=== PATIENT | female | born 1950 | race Caucasian/White ===

== ENCOUNTER 2018-02-10 13:16 | Outpatient (CLI) | payer MEDICARE, OTHER ==
[~2018-02-10] VITALS: Ht 157.5 cm; Wt 72.6 kg
[2018-02-10] MEDS ORDERED: DEXAMETHASONE 10 MG/ML (DECADRON) 1 ML VIAL ONE (13:24)
[2018-02-10 13:33] VITALS: BP 102/99
[2018-02-10 13:52] VITALS: BP 145/71
== END 2018-02-10 13:55 | disposition home or self-care (01) ==
LOC: CARD 13:16
PROVIDERS: ATTEND Pain Medicine Interventional Pain Medicine
DX: M54.12 Radiculopathy, cervical region (principal); M06.9 Rheumatoid arthritis, unspecified; K21.9 Gastro-esophageal reflux disease without esophagitis; F32.9 Major depressive disorder, single episode, unspecified; Z79.899 Other long term (current) drug therapy
CPT/HCPCS: 62321

== ENCOUNTER 2023-09-11 09:10 | Emergency (ER) | payer MEDICARE, OTHER ==
[~2023-09-11] VITALS: Ht 157.5 cm; Wt 75.7 kg
[2023-09-11 09:16] VITALS: BP 181/84
--- NOTE | 2023-09-11 09:29 | ED Lower Extremity ---
General Chief Complaint: Lower Extremity Stated Complaint: RT ANKLE PAIN History of Present Illness Date Seen by Provider: Sep 11, 2023 Time Seen by Provider: 09:20 Initial Comments 73 yr F is here with c/o twisting her right ankle while she was walking her dog. Pt put ice on it right away but it did not help the pain or swelling much. Allergies and Home Medications Allergies Coded Allergies: latex (Verified Allergy, Unknown, 02/10/18) Patient Home Medication List Home Medication List Reviewed: Yes Review of Systems Constitutional: no symptoms reported Musculoskeletal: joint pain, joint swelling Past Vmuwhvx-Jheajv-Acaijp Hx Patient Social History Tobacco Use?: No Smoking Status: Never a Smoker Smokeless Tobacco Frequency: Never a User Use of E-Cig and/or Vaping dev: No Substance use?: No Alcohol Use?: Yes Alcohol Frequency: Once in a while Pt feels they are or have been: No Physical Exam Vital Signs Vital Signs - First Documented 09/11/23 09:16 Temp 36.8 Pulse 58 Resp 19 B/P (MAP) 181/84 (116) O2 Delivery Room Air Capillary Refill : Height, Weight, BMI Height: 5'2.00" Weight: 160lbs. 0.0oz. 72.891416lh; 29.3 BMI Method: General Appearance: WD/WN, no apparent distress HEENT: PERRL/EOMI Neck: full range of motion Knees: right knee non-tender, right knee normal inspection, right knee normal range of motion, right knee no evidence of injury Ankles: right ankle ecchymosis, right ankle limited range of motion (Due to pain), right ankle pain, right ankle soft tissue tenderness, right ankle swelling, right ankle other (N/V bundle intact no deformity) Feet: right foot non-tender, right foot normal inspection, right foot normal range of motion Neurologic/Tendon: normal sensation, normal motor functions Neurologic/Psychiatric: alert, oriented x 3 Progress/Results/Core Measures Results/Orders My Orders Orders - EAMON TATE MD Ankle 3 View Right (09/11/23 09:22) Ketorolac Injection (Ketorolac Injection (09/11/23 10:30) Oxycodone/Apap 5/325mg Tablet (Oxycodon (09/11/23 10:30) Medications Given in ED Current Medications Medications Dose Ordered Sig/Alta Route Start Time Stop Time Status Last Admin Dose Admin Ketorolac Tromethamine 30 mg ONCE ONCE IM 09/11/23 10:30 09/11/23 10:32 DC 09/11/23 10:43 30 MG Oxycodone/ Acetaminophen 1 tab ONCE ONCE PO 09/11/23 10:30 09/11/23 10:32 DC 09/11/23 10:42 1 TAB Vital Signs/I&O 09/11/23 09:16 Temp 36.8 Pulse 58 Resp 19 B/P (MAP) 181/84 (116) O2 Delivery Room Air Progress Progress Note : Progress Note 1. RIGHT ANKLE FRACTURE: - XR RIGHT ANKLE: Distal fibular and medial malleolar fractures as described with some widening of the medial ankle mortise and overlying soft tissue swelling. - Toradol im & Percocet 5mg STAT in ER - Posterior ankle splint and crutches - Advised Ice application - Take home pack of Percocet to be taken every 6 hours for severe pain. Also Ib uprofen 600mg every 6 hours. - Follow up with Ortho in the next [address] Hernández's office. -The patient was seen in the ED, and treated appropriately to presentation at a specific point in time. Patient is informed that there is a possibility that disease and illness can evolve and change in acuity rapidly or slowly after patient is discharged from the ER. Precautionary advice given to the patient for immediate return to ER if symptoms worsen or do not resolve, and to seek emergency care sooner rather than later. Pt also advised on the importance of PCP follow up and compliance with management and follow up plan with PCP and/or specialist, as this is part of the management plan. Pt verbally expressed understanding. Diagnostic Imaging Diagonstic Imaging: Xray Plain Films/CT/US/NM/MRI: ankle Comments [facility], [facility]. [place], [place] NAME: [facility] REC#: [id number] PT STATUS: REG ER : 1950 PHYSICIAN: EAMON TATE MD ADMIT DATE: 09/11/23/ER FS Draft Date of Exam:09/11/23 ANKLE 3 VIEW RIGHT INDICATION: Fall with pain. FINDINGS: There is a minimally displaced oblique fracture through the distal fibula. There is a transverse fracture through the medial malleolus. Slight widening of the medial ankle mortise superiorly. The talar dome is intact. There is some soft tissue swelling. IMPRESSION: Distal fibular and medial malleolar fractures as described with some widening of the medial ankle mortise and overlying soft tissue swelling. Dictated on workstation # [id number] Dict: 09/11/2355 Trans: 09/11/2357 CV [id number] Interpreted by: SHANEL ROPER MD Electronically signed by: Departure Impression Primary Impression: Closed right ankle fracture Qualified Codes: S82.891A - Other fracture of right lower leg, initial encounter for closed fracture Disposition: HOME, SELF-CARE Condition: Stable Departure-Patient Inst. Referrals: CHALINO CARR APRN (PCP) Primary Care Physician [facility] (Family) Primary Care Physician AMISH HERNÁNDEZ MD Patient Instructions: Ankle fracture, Splint Care Add. Discharge Instructions: - Posterior ankle splint and crutches - Advised Ice application - Take home pack of Percocet to be taken every 6 hours for severe pain. Also Ibuprofen 600mg every 6 hours. - Follow up with Ortho in the next [address] Hernández's office. All discharge instructions reviewed with patient and/or family. Voiced understanding. EAMON TATE MD Sep 11, 2023 09:29
--- NOTE | 2023-09-11 09:57 | Diagnostic Imaging Report ---
INDICATION: Fall with pain. FINDINGS: There is a minimally displaced oblique fracture through the distal fibula. There is a transverse fracture through the medial malleolus. Slight widening of the medial ankle mortise superiorly. The talar dome is intact. There is some soft tissue swelling. IMPRESSION: Distal fibular and medial malleolar fractures as described with some widening of the medial ankle mortise and overlying soft tissue swelling. Dictated by: Dictated on workstation # [id number]
[2023-09-11] MEDS ORDERED: KETOROLAC INJ 30 MG/ML VIAL IM ONE (10:30)
[2023-09-11] MEDS ORDERED: oxyCODONE/ACETAMINOPHEN 5/325MG TABLET PO ONE (10:30)
[2023-09-11] MEDS ORDERED: OXYC-199 PO (10:35)
[2023-09-11] MEDS ORDERED: RX-OXYCODONE/APAP 5-325 MG #4 TAB PK PO PRN (11:00)
== END 2023-09-11 11:00 | disposition home or self-care (01) ==
LOC: EDUNIT# 09:10 → ER FS 09:12
DX: S82.51XA Displaced fracture of medial malleolus of right tibia, initial encounter for closed fracture (principal); S82.831A Other fracture of upper and lower end of right fibula, initial encounter for closed fracture; Z91.040 Latex allergy status; X50.1XXA Overexertion from prolonged static or awkward postures, initial encounter; Y93.K1 Activity, walking an animal
CPT/HCPCS: 73610; 99283